=== PATIENT | female | born 1945 | race African-American/Black ===

== ENCOUNTER 2017-01-07 15:50 | Emergency (ER) | payer OTHER ==
[~2017-01-07] VITALS: Ht 162.6 cm; Wt 90.7 kg
--- NOTE | ~2017-01-07 | CR252 ---
[facility] A Service of [facility] & [facility] RADIOLOGY TEXT RESULTS PATIENT: KASSI COWAN LOCATION: CFTX : 45 UNIT #: [id number] AGE: [address]: Loi Lopez SEX: F ORDER DR: [id number] [facility] [address] [place], [place] [address] [id number] E MR#: [id number] Acc #: [id number] NAME: KASSI COWAN. : 1945 SEX: F STUDY DATE/TIME: 01/07/2017 16:46 UNIT: [facility] ROOM: STUDY DESCRIPTION: CR Tibia and Fibula 2 Views Lt Attending Physician: Loi Lopez R.N. Ordering Physician: Loi Lopez R.N. Primary Care Physician: Jolene Kauffman A.P.R.N. MEDICAL IMAGING REPORT This report is preliminary unless electronic signature is present EXAM Left lower leg HISTORY Fell today, lower leg and ankle pain. FINDINGS 3 views of the left ankle demonstrates a short oblique fracture of the distal fibula which appears nondisplaced. No disruption of the ankle mortise. The remainder of the visualized tibia and fibula appear normal. Knee joint unremarkable for age. Soft tissues unremarkable. IMPRESSION Nondisplaced short oblique fracture distal fibula. Please see left ankle report for details. Dictated by... Keli Cantu M.D. THIS IS AN ELECTRONICALLY VERIFIED REPORT Keli Cantu M.D. at 01/08/2017 2:31 PM MARICARMEN/[email or web address] TD: 01/08/2017 03:34 JOB #: [id number] MEDICAL IMAGING REPORT Page 1 of 1 COPY
--- NOTE | ~2017-01-07 | CR281 ---
[facility] A Service of [facility] & [facility] RADIOLOGY TEXT RESULTS PATIENT: KASSI COWAN LOCATION: CFTX : 45 UNIT #: [id number] AGE: [address]: Loi Lopez SEX: F ORDER DR: [id number] [facility] [address] [place], [place] [address] [id number] E MR#: [id number] Acc #: [id number] NAME: KASSI COWAN. : 1945 SEX: F STUDY DATE/TIME: 01/07/2017 16:41 UNIT: [facility] ROOM: STUDY DESCRIPTION: CR Wrist Min 3 View Lt Attending Physician: Loi Lopez R.N. Ordering Physician: Loi Lopez R.N. Primary Care Physician: Jolene Kauffman A.P.R.N. MEDICAL IMAGING REPORT This report is preliminary unless electronic signature is present EXAM Left wrist 3 views HISTORY Wrist pain after fall today. FINDINGS 3 views of the left wrist demonstrates no acute fracture or dislocation. Minimal arthritic change is seen at the radiocarpal joint and scaphotrapezial joint. Soft tissues are unremarkable. IMPRESSION No acute findings. Dictated by... Keli Cantu M.D. THIS IS AN ELECTRONICALLY VERIFIED REPORT Keli Cantu M.D. at 01/08/2017 2:31 PM MARICARMEN/[email or web address] TD: 01/08/2017 03:30 JOB #: [id number] MEDICAL IMAGING REPORT Page 1 of 1 COPY
--- NOTE | ~2017-01-07 | CR20 ---
[facility] A Service of [facility] & [facility] RADIOLOGY TEXT RESULTS PATIENT: KASSI COWAN LOCATION: CFTX : 45 UNIT #: [id number] AGE: [address]: Loi Lopez SEX: F ORDER DR: [id number] [facility] [address] [place], [place] [address] [id number] E MR#: [id number] Acc #: [id number] NAME: KASSI COWAN. : 1945 SEX: F STUDY DATE/TIME: 01/07/2017 16:43 UNIT: [facility] ROOM: STUDY DESCRIPTION: CR Ankle Min 3 Views Lt Attending Physician: Loi Lopez R.N. Ordering Physician: Loi Lopez R.N. Primary Care Physician: Jolene Kauffman A.P.R.N. MEDICAL IMAGING REPORT This report is preliminary unless electronic signature is present EXAM Left ankle, 3 views. HISTORY Fell today with left ankle pain. FINDINGS Three views of the left ankle demonstrates a short oblique fracture of the distal fibula. No disruption of the ankle mortise. Talus and subtalar joint unremarkable. Mild soft tissue swelling. Suboptimal lateral view. IMPRESSION Essentially nondisplaced short oblique fracture of the distal fibula without apparent disruption of the ankle mortise. Mild soft tissue swelling. Dictated by... Keli Cantu M.D. THIS IS AN ELECTRONICALLY VERIFIED REPORT Keli Cantu M.D. at 01/08/2017 2:31 PM MARICARMEN/[email or web address] TD: 01/08/2017 03:34 JOB #: [id number] MEDICAL IMAGING REPORT Page 1 of 1 COPY
[~2017-01-07 15:50] MED LIST: BENAZEPRIL PO; ESTROGEN
== END 2017-01-07 17:51 | disposition home or self-care (01) ==
LOC: CFTX 15:50 → CED 15:50 → CFTX 16:57
DX: S82.832A Other fracture of upper and lower end of left fibula, initial encounter for closed fracture (principal); S63.502A Unspecified sprain of left wrist, initial encounter; I10 Essential (primary) hypertension; Z90.49 Acquired absence of other specified parts of digestive tract; Z98.890 Other specified postprocedural states; W01.0XXA Fall on same level from slipping, tripping and stumbling without subsequent striking against object, initial encounter; Y92.89 Other specified places as the place of occurrence of the external cause
CPT/HCPCS: 29260; 29540; 73110; 73590; 73610; 90471; 90715; 99283